=== PATIENT | male | born 1995 | race Caucasian/White ===

== ENCOUNTER 2022-09-15 08:46 | Emergency (ER) | payer OTHER ==
[~2022-09-15] VITALS: Ht 172.7 cm; Wt 73.3 kg
[2022-09-15 08:59] VITALS: BP 120/80
--- NOTE | 2022-09-15 09:11 | NUR ---
in [facility] for right tooth/gum pain 09/07 since yesterday. noted swelling and increased pain today. denies sob, fever, chills, headache. aao x4. resp even and nonlabored. vss. ambulatory
[2022-09-15 10:32] LABS: BASOPHILS # (AUTO) 0.1 K/uL (0.00-0.22); BASOPHILS % (AUTO) 0.5 % (0.0-2.0); EOSINOPHILS # (AUTO) 0.2 K/uL (0-0.4); EOSINOPHILS % (AUTO) 2.2 % (0.0-4.0); HEMATOCRIT 47.4 % (36-52); HEMOGLOBIN 16.2 g/dL (12.0-18.0); LYMPHOCYTES # (AUTO) 1.4 K/uL (2.0-11.5); LYMPHOCYTES % (AUTO) 14.6 % (20.5-51.1); MEAN CORPUSCULAR HEMOGLOBIN 31 pg (27-31); MEAN CORPUSCULAR HGB CONC 34 g/dL (33-37); MEAN CORPUSCULAR VOLUME 89.6 fL (80-94); MONOCYTES # (AUTO) 0.9 K/uL (0.8-1.0); MONOCYTES % (AUTO) 9.6 % (1.7-9.3); NEUTROPHILS # (AUTO) 7.2 K/uL (1.8-7.7); NEUTROPHILS % (AUTO) 73.1 % (42.2-75.2); PLATELET COUNT (AUTO) 254 K/uL (140-450); RED BLOOD CELL COUNT(AUTO) 5.28 MIL/uL (4.20-6.10); RED CELL DISTRIBUTION WIDTH 13.5 % (11.6-13.7); WHITE BLOOD COUNT (AUTO) 9.8 K/uL (4.8-10.8)
[2022-09-15 10:38] LABS: ANION GAP 12.4 (8-16); CARBON DIOXIDE 29.8 mmol/L (21-32); CREATININE 0.8 mg/dL (0.6-1.3); POTASSIUM 4.2 mmol/L (3.5-5.1)
[2022-09-15] MEDS ORDERED: NACL 0.9% 1,000 ML IV ONE (10:40)
[2022-09-15] MEDS ORDERED: KETOROLAC 30 MG/ML VIAL IVP ONE (10:40)
--- NOTE | 2022-09-15 11:21 | NUR ---
pt in ct
[2022-09-15] MEDS ORDERED: IBUP-2213 PO (12:02)
[2022-09-15] MEDS ORDERED: PENI250T21 PO (12:02)
[2022-09-15 12:14] VITALS: BP 122/74
--- NOTE | 2022-09-15 12:15 | NUR ---
Patient discharged with v/s stable. Written and verbal after care instructions given and explained. Patient alert, oriented and verbalized understanding of instructions. Ambulatory with steady gait. All questions addressed prior to discharge. ID band removed. Patient advised to follow up with PMD. Rx of given. Patient educated on indication of medication including possible reaction and side effects. Opportunity to ask questions provided and answered.iv removed.
== END 2022-09-15 12:15 | disposition home or self-care (01) ==
LOC: MED 08:46
DX: K04.7 Periapical abscess without sinus (principal)
CPT/HCPCS: 36415; 70487; 80048; 85025; 96361; 96374; 99285; J1885; Q9967; J7030

== ENCOUNTER 2022-11-25 09:49 | Emergency (ER) | payer OTHER ==
[~2022-11-25] VITALS: Ht 172.7 cm; Wt 72.6 kg
[~2022-11-25 09:49] MED LIST: IBUP-2213 PO; PENI250T21 PO
[2022-11-25 10:06] VITALS: BP 120/87
[2022-11-25] MEDS ORDERED: cefTRIAXone 500 MG in LIDOCAINE MPF 1% 1 ML IM ONE (10:35)
[2022-11-25] MEDS ORDERED: IBUPROFEN 600 MG TAB PO ONE (10:35)
[2022-11-25] MEDS ORDERED: cefTRIAXone 500 MG VIAL ONE (10:46)
[2022-11-25] MEDS ORDERED: LIDOCAINE MPF 1% 5 ML ONE (10:46)
[2022-11-25 10:52] LABS: APPEARANCE,URINE HAZY (CLEAR); BILIRUBIN,URINE NEGATIVE (NEGATIVE); BLOOD, URINE 2+ (NEGATIVE); COLOR,URINE YELLOW (YELLOW); LEUKOCYTE ESTERASE ,URINE 3+ (NEGATIVE); NITRITE, URINE NEGATIVE (NEGATIVE); UGLUCOSE NEGATIVE (NEGATIVE)
[2022-11-25 11:00] LABS: RBC,URINE NONE SEEN /HPF (0-5); WBC,URINE TOO MANY TO COUNT /HPF (0-5)
[2022-11-25] MEDS ORDERED: DOXY-690 PO (11:57)
[2022-11-25 12:45] VITALS: BP 120/87
--- NOTE | 2022-11-25 12:45 | NUR ---
Patient discharged with v/s stable. Written and verbal after care instructions given and explained. Patient alert, oriented and verbalized understanding of instructions. Ambulatory with steady gait. All questions addressed prior to discharge. ID band removed. Patient advised to follow up with PMD. Rx of vibramycin (sent) given. Patient educated on indication of medication including possible reaction and side effects. Opportunity to ask questions provided and answered. dx by mary quinones
== END 2022-11-25 12:45 | disposition home or self-care (01) ==
LOC: MED 09:49
DX: N34.2 Other urethritis (principal); F17.200 Nicotine dependence, unspecified, uncomplicated; F12.90 Cannabis use, unspecified, uncomplicated; Z71.6 Tobacco abuse counseling; Z79.899 Other long term (current) drug therapy
CPT/HCPCS: 81001; 87086; 87491; 96372; 99283; J0696; J2001

== ENCOUNTER 2024-03-10 12:18 | Emergency (ER) | payer OTHER ==
[~2024-03-10] VITALS: Ht 172.7 cm; Wt 74.8 kg
[~2024-03-10 12:18] MED LIST changes: +DOXY-690 PO
[2024-03-10 12:33] VITALS: BP 128/86; PULSE 82; RESP 18; TEMP 98.7; O2SAT 97
[2024-03-10] MEDS ORDERED: PROM118S5 PO (13:13)
[2024-03-10] MEDS ORDERED: ACET-10509 PO (13:13)
[2024-03-10] MEDS ORDERED: ONDA-188 PO (13:13)
[2024-03-10 14:00] LABS: FLU A ANTIGEN negative (NEGATIVE); FLU B ANTIGEN negative (NEGATIVE)
== END 2024-03-10 13:29 | disposition home or self-care (01) ==
LOC: MED 12:18
DX: J06.9 Acute upper respiratory infection, unspecified (principal); Z20.822 Contact with and (suspected) exposure to COVID-19; Z79.899 Other long term (current) drug therapy
CPT/HCPCS: 99283